=== PATIENT | female | born 1975 | race Caucasian/White ===

== ENCOUNTER 2019-07-01 22:58 | Emergency (ER) | payer BC ==
[~2019-07-01] VITALS: Ht 149.9 cm; Wt 87.7 kg
[2019-07-01 23:12] VITALS: Ht 149.9 cm; Wt 87.7 kg
[2019-07-02 01:04] LABS: CALCIUM 8.7 mg/dL (8.5-10.1); CHLORIDE SERUM 104 mmol/L (98-107); CREATININE SERUM 0.8 mg/dL (0.6-1.0); GFR1 > 60 mL/min; GLUCOSE SERUM 118 mg/dL (74-106); POTASSIUM SERUM 3.9 mmol/L (3.5-5.1); SODIUM SERUM 141 mmol/L (136-145)
[2019-07-02 01:08] LABS: ALBUMIN 3.4 g/dL (3.4-5.0); ALKALINE PHOSPHATASE 114 U/L (46-116); ALT/SGPT 20 U/L (14-59); BILIRUBIN TOTAL 0.18 mg/dL (0.20-1.00); TOTAL PROTEIN, SERUM 7.5 g/dL (6.4-8.2); URIC ACID 3.9 mg/dL (2.6-6.0)
[2019-07-02 01:16] LABS: BASOPHIL % 0.7 % (0-2)
[2019-07-02 01:17] LABS: RED CELL DISTRIBUTION WIDTH 19.3 % (11.5-14.5)
[2019-07-02 01:18] LABS: PLATELET COUNT 553 x10^3mcL (130-400)
[2019-07-02 01:19] LABS: AST/SGOT 12 U/L (15-37)
[2019-07-02 03:43] VITALS: BP 138/70
== END 2019-07-02 03:45 | disposition home or self-care (01) ==
LOC: ED 22:58
PROVIDERS: Emergency Medicine
DX: M25.572 Pain in left ankle and joints of left foot (principal); D64.9 Anemia, unspecified; F17.210 Nicotine dependence, cigarettes, uncomplicated; Z71.6 Tobacco abuse counseling
CPT/HCPCS: 36415; 83880; 99406; Q0092